=== PATIENT | male | born 1985 ===

== ENCOUNTER 2018-02-23 08:44 | Outpatient (CLI) | payer OTHER ==
[~2018-02-23] VITALS: Ht 177.8 cm; Wt 90.7 kg
== END 2018-02-23 09:00 | disposition home or self-care (01) ==
LOC: OFIC 805 08:44
DX: K21.9 Gastro-esophageal reflux disease without esophagitis (principal); J30.89 Other allergic rhinitis; J32.8 Other chronic sinusitis